=== PATIENT | male | born 1975 | race Caucasian/White ===

== ENCOUNTER → 2019-03-24 | Outpatient (CLI) | payer OTHER ==
[~2019-03-24] MED LIST: IOHEXOL 240 MG/ML 50ML VIAL. ONE; LISI2.5T PO; SULF1TAB24 PO
[2019-03-24] MEDS: IOHEXOL 300 MG/ML 75 ML VIAL. IV ONE (14:38)
--- NOTE | 2019-03-24 15:22 | RAD ---
Examination: CT of the abdomen pelvis with oral and IV contrast HISTORY: History of right-sided abdominal pain, flank pain COMPARISON: 07/22/2016 TECHNIQUE: Axial CT images of the abdomen pelvis were performed with oral and IV contrast. Coronal and sagittal reformats are performed. Exposure: One or more of the following individualized dose reduction techniques were utilized for this examination: 1. Automated exposure control 2. Adjustment of the mA and/or kV according to patient size 3. Use of iterative reconstruction technique FINDINGS: The bibasilar lungs are clear. No evidence of free air identified in the abdomen. There is diffuse decreased attenuation noted in the liver likely hepatic steatosis. The spleen, adrenals grossly appears unremarkable. The gallbladder is mildly distended. The stomach is mildly distended. The visualized pancreas grossly appears unremarkable. The small bowel is nondilated. The appendix is normal. Feces and gas noted in the colon. Urinary bladder is mildly distended. The bilateral kidneys enhance symmetrically. The caliber of the aorta grossly appears unremarkable. Central prostatic calcifications. No evidence of lytic bony destructive lesion. IMPRESSION: 1. No acute abdominal findings. 2. Hepatic steatosis. Electronically signed by: Lasha Feng MD (03/24/2019 3:19 PM) [id number]
== END | disposition home or self-care (01) ==
LOC: CT 13:08
PROVIDERS: ATTEND Registered Nurse
DX: K76.0 Fatty (change of) liver, not elsewhere classified (principal); N32.89 Other specified disorders of bladder; N42.89 Other specified disorders of prostate; I10 Essential (primary) hypertension
CPT/HCPCS: 74177; Q9967

== ENCOUNTER → 2019-03-24 | Outpatient (CLI) | payer OTHER ==
[~2019-03-24] MED LIST changes: -IOHEXOL 240 MG/ML 50ML VIAL. ONE
--- NOTE | 2019-03-24 13:33 | RAD ---
EXAM: Abdomen sonogram. HISTORY: Pain. TECHNIQUE: Sonographic imaging of the abdomen was performed. COMPARISON: 07/22/2016. FINDINGS: The urinary bladder is unremarkable. There are few incidental prostate calcifications. The right kidney is normal in size. No solid or cystic renal lesion is seen. There is no hydronephrosis. There is no pelvic free fluid or pelvic mass. IMPRESSION: No acute sonographic finding involving the pelvis or right kidney. Electronically signed by: Roma Velasquez MD (03/24/2019 1:30 PM) [place] [id number]
--- NOTE | 2019-03-24 13:43 | RAD ---
EXAM: Scrotal sonogram. HISTORY: Testicular pain. TECHNIQUE: Cordero scale and color Doppler sonographic imaging of the scrotum with spectral waveform analysis was performed. COMPARISON: None. FINDINGS: The testes are normal in size and demonstrate normal symmetric blood flow. No focal testicular parenchymal lesion is seen. There is a small right epididymal cyst measuring 4 mm. There are small bilateral hydroceles. There is no varicocele. IMPRESSION: 1. Small bilateral hydroceles. 2. Small right epididymal cyst. 3. Unremarkable testes. Electronically signed by: Roma Velasquez MD (03/24/2019 1:41 PM) [place] [id number]
== END | disposition home or self-care (01) ==
LOC: US 10:40
PROVIDERS: ATTEND Registered Nurse
DX: N43.3 Hydrocele, unspecified (principal); N50.3 Cyst of epididymis; N42.89 Other specified disorders of prostate
CPT/HCPCS: 76705; 76870

== ENCOUNTER → 2020-12-27 | Outpatient (CLI) | payer OTHER ==
--- NOTE | 2020-12-28 05:59 | RAD ---
CT cervical spine without contrast PQRS statement: CT scans at this facility use dose reduction including either automated exposure cont rol, iterative reconstructions, and /or weight based radiation dosing via mA and kV modification when appropriate to reduce radiation dose to as low as reasonably achievable. HISTORY: Neck pain. FINDINGS: There is slight cervicothoracic scoliosis. Craniocervical junction intact. Cervical vertebr al body height and alignment intact. ACDF at C5-C6 and C6-C7 with anterior plate and screws and inter body spacers. There is complete osseous fusion across the C5-C6 interbody spacer. No significant osse ous fusion across the C6-C7 interbody spacer. No fracture of the cervical spine. 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 Paraspinal tissues and lung apices are unremarkable. Disc disease descr ibed below. C2-C3: There is a probable focal central disc protrusion may contribute to mild canal stenosis. Left greater than right uncovertebral facet spurring, contributing to moderate left neural foraminal steno sis. C3-C4: Disc osteophyte with superimposed central disc protrusion, with right greater than left uncove rtebral facet spurring, likely contributes to moderate to severe spinal canal stenosis, and severe ri ght greater than left neural foraminal stenoses. C4-C5: Mild disc osteophyte with superimposed central disc protrusion and uncovertebral facet spurrin g. There is probable moderate spinal canal stenosis. Mild right neural foraminal stenosis. Moderate l eft neural foraminal stenosis. C5-C6: Uncovertebral spurring and mild facet hypertrophy contributes to mild left neural foraminal st enosis. Right neural foramen patent. Spinal canal decompressed from discectomy, there is bony vertebr al endplate ridging projecting posteriorly which could contribute to some residual moderate canal kimo nosis on sagittal image 38, axial image 86, with AP bony canal diameter of 8 mm. C6-C7: Spinal canal decompression from discectomy. Mild vertebral endplate bony ridging. Mild uncover tebral spurring more so on the left. Spinal canal patent. Right neural foramen patent. Very mild left neural foraminal stenosis. C7-T1: Facet spurring contributing to mild left neural foraminal stenosis. Right neural foramen is pa tent. There is some streak artifact present however there is a suspected left paracentral disc hernia tion on axial image 1 4 although this could be related to artifact rather than all related to herniat ion, this could contribute to spinal canal and left lateral recess stenosis. IMPRESSION: 1. ACDF at C5-C6 and C6-C7. See above. 2. Cervical disc disease and arthritis with uncovertebral and facet bone spurring with spinal canal a nd neural foraminal stenoses as described above. Electronically signed by: Douglas Chairez MD (12/28/2020 5:56 AM) [facility]
== END ==
LOC: CT 15:54
PROVIDERS: ATTEND Physician Assistant Medical
DX: M48.02 Spinal stenosis, cervical region (principal); M25.78 Osteophyte, vertebrae; M46.02 Spinal enthesopathy, cervical region
CPT/HCPCS: 72125